=== PATIENT | female | born 1995 | race Caucasian/White ===

== ENCOUNTER 2017-07-13 14:10 | Emergency (ER) | payer SELFPAY ==
[~2017-07-13] VITALS: Ht 170.2 cm; Wt 53.1 kg
[2017-07-13 14:16] VITALS: BP 105/71; Ht 170.2 cm; Wt 53.1 kg
== END 2017-07-13 15:20 | disposition home or self-care (01) ==
LOC: ED 14:10
DX: B34.9 Viral infection, unspecified (principal); L25.9 Unspecified contact dermatitis, unspecified cause; F17.210 Nicotine dependence, cigarettes, uncomplicated; Z88.0 Allergy status to penicillin
CPT/HCPCS: J1885; Q0092